=== PATIENT | female | born 1950 | race Hispanic/Latino ===

== ENCOUNTER 2018-08-11 19:05 | Emergency (ER) | payer OTHER ==
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
[2018-08-11 19:20] VITALS: BMI 29.0
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
[2018-08-11 22:41] VITALS: BP 142/79; PULSE 82; RESP 18; TEMP 98.9; O2SAT 99
--- NOTE | 2018-08-12 11:25 | RAD ---
Date of service: 08/11/2018 PROCEDURE: Right Ankle Radiographs. HISTORY: r ankle pain COMPARISON: None FINDINGS: BONES: There is a displaced transverse fracture of the distal fibula above the level of the ankle joint. There is also a displaced transverse fracture of the medial malleolus JOINTS: Normal. No osteoarthritis. Ankle mortise maintained. Talar dome intact SOFT TISSUES: Normal. OTHER FINDINGS: None. IMPRESSION: Bimalleolar fracture
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
== END 2018-08-11 21:58 | disposition home or self-care (01) ==
LOC: ED 19:05
DX: S82.841A Displaced bimalleolar fracture of right lower leg, initial encounter for closed fracture (principal)